=== PATIENT | female | born 1990 | race Caucasian/White ===

== ENCOUNTER 2019-01-04 12:00 | Emergency (ER) | payer OTHER ==
[2019-01-04 13:49] LABS: Absolute Lymphocytes (CBC) 2.4 K/uL (0.7-4.9); Absolute Monocytes 0.5 K/uL (0.1-1.3); Absolute Neutrophil 4.3 K/uL (1.8-8.0); Basophils % 0.7 % (0-1.3); Eosinophils % 1.6 % (0-4.4); Hematocrit 45.1 % (36.0-45.0); Lymphocytes % 32.3 % (15.3-44.8); MPV 8.5 fL (7.6-11.3); Monocytes % 6.6 % (3.3-12.3); RBC Red Blood Cell Count 5.65 M/uL (3.86-4.86)
[2019-01-04 13:59] LABS: Albumin 3.9 g/dL (3.4-5.0); Bilirubin Direct 0.2 mg/dL (0-0.2); Bilirubin Total 0.6 mg/dL (0.2-1.0); Potassium 3.9 mmol/L (3.5-5.1); Protein, Total 8.7 g/dL (6.4-8.2)
[2019-01-04] MEDS ORDERED: NA CHLORIDE 0.9% 1,000 ML ONE (14:15)
--- NOTE | 2019-01-04 15:10 | ER ---
Nurse's Notes [facility] Name: Odessa Stone Age: 28 yrs Sex: Female : 1990 Arrival Date: 01/04/2019 Time: 12:03 Bed 24 Private MD: Diagnosis: Diarrhea, unspecified;Dizziness and giddiness Presentation: 01/04 12:09 Presenting complaint: cough, congestion, fever, diarrhea, dizziness, and decreased hb appetite x 4 days. Sent from [facility]. Transition of care: patient was not received from another setting of care. Onset of symptoms was December 29, 2018. Risk Assessment: Do you want to hurt yourself or someone else? Patient reports no desire to harm self or others. Care prior to arrival: None. 12:09 Method Of Arrival: Ambulatory hb 12:09 Acuity: RAYMUNDO 3 hb 18:52 Initial Sepsis Screen: Does the patient meet any 2 criteria? No. Patient's initial tl3 sepsis screen is negative. Does the patient have a suspected source of infection? No. Patient's initial sepsis screen is negative. 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 - Social history:: Smoking status: Patient/guardian denies using tobacco. - Ebola Screening: : No symptoms or risks identified at this time. Screenin:49 Abuse screen: Denies threats or abuse. Nutritional screening: No deficits noted. tl3 Tuberculosis screening: No symptoms or risk factors identified. Fall Risk None identified. Assessment: 13:49 General: Appears uncomfortable, well groomed, well developed, well nourished, Behavior tl3 is calm, cooperative, appropriate for age. Pain: Complains of pain in headache Pain currently is 5 out of 10 on a pain scale. Neuro: Level of Consciousness is awake, alert, obeys commands, Oriented to person, place, time, situation, Appropriate for age. Neuro: Reports dizziness, since on/off for one week has had flu symptoms over the last week, fever t-max 102.0 was 4 days ago. Cardiovascular: Heart tones S1 S2 present Patient's skin is warm and dry. Respiratory: Airway is patent Respiratory effort is even, unlabored, Respiratory pattern is regular, symmetrical, Breath sounds are clear bilaterally. GI: Reports diarrhea. : No signs and/or symptoms were reported regarding the genitourinary system. EENT: No signs and/or symptoms were reported regarding the EENT system. Derm: No signs and/or symptoms reported regarding the dermatologic system. 14:38 Reassessment: Patient appears in no apparent distress at this time. No changes from tl3 previously documented assessment. Patient and/or family updated on plan of care and expected duration. Pain level reassessed. Patient is alert, oriented x 3, equal unlabored respirations, skin warm/dry/pink. IV fluids infusing, additional blankets provided, no needs at this time. Vital Signs: 12:11 BP 147 / 102; Pulse 97; Resp 16; Temp 98.3; Pulse Ox 99% on R/A; Pain 0/10; hb 13:31 BP 114 / 79 LA (auto/lg); Pulse 78; Resp 19; Pulse Ox 98% on R/A; Pain 2/10; jp3 13:49 BP 114 / 79; Pulse 84; Resp 16; Pulse Ox 98% on R/A; tl3 14:38 BP 116 / 93; Pulse 73; Resp 16; Pulse Ox 100% on R/A; tl3 13:31 patient reported a headache. jp3 ED Course: 12:03 Patient arrived in ED. rg4 12:10 Triage completed. hb 12:11 Arm band placed on left wrist. hb 13:06 Bed in low position. Call light in reach. Side rails up X 1. Warm blanket given. jp3 13:13 Gordon Agrawal MD is Attending Physician. kdr 13:30 Initial lab(s) drawn, by me, sent to lab. Inserted saline lock: 20 gauge in right 3 antecubital area, using aseptic technique. Blood collected. 13:35 Pulse ox on. NIBP on. jp3 13:43 Shayy Mcgill RN is Primary Nurse. tl3 13:43 Lipase Sent. jp3 13:43 Hepatic Function Sent. jp3 13:43 Creatinine for Radiology Sent. jp3 13:43 CBC with Diff Sent. jp3 13:43 Basic Metabolic Panel Sent. jp3 13:49 No provider procedures requiring assistance completed. tl3 15:25 IV discontinued, intact, bleeding controlled, No redness/swelling at site. Pressure tl3 dressing applied. Administered Medications: 14:11 Drug: NS 0.9% 1000 ml Route: IV; Rate: 1 bolus; Site: right antecubital; Delivery: tl3 Primary tubing; 15:20 Follow up: IV Status: Completed infusion; IV Intake: 1000ml tl3 Intake: 15:20 IV: 1000ml; Total: 1000ml. tl3 Outcome: 15:08 Discharge ordered by . kdr 15:25 Discharged to home tl3 15:25 Condition: stable 15:25 Discharge instructions given to patient, Instructed on discharge instructions, follow up and referral plans. Demonstrated understanding of instructions, follow-up care. 15:27 Patient left the ED. iw Signatures: Gordon Agrawal MD MD kdr Williams, Irene, RN RN Amee Mendoza RN RN hb Garcia, Rubi 4 Shayy Mcgill RN RN tl3 Mic Rodriguez jp3 Corrections: (The following items were deleted from the chart) 12:11 12:09 Presenting complaint: Diarrhea, malaise, cough, and dizziness x 1 week hb hb 12:11 12:09 Acuity: RAYMUNDO 4 hb hb
--- NOTE | 2019-01-04 15:10 | EDPHYS ---
Physician Documentation [facility] Name: Odessa Stone Age: 28 yrs Sex: Female : 1990 Arrival Date: 01/04/2019 Time: 12:03 Bed 24 Private MD: ED Physician Gordon Agrawal HPI: 01/04 14:04 This 28 yrs old Female presents to ER via Ambulatory with complaints of kdr Dizziness, Diarrhea. 14:04 The patient presents to the emergency department with nausea, diarrhea, that is kdr intermittent, abdominal pain, of the abdomen diffusely, described as crampy, intermittent, and does not radiate. Onset: The symptoms/episode began/occurred gradually, 1 week(s) ago. Possible causes: unknown. The symptoms are aggravated by food , The symptoms are alleviated by nothing. Associated signs and symptoms: Pertinent positives: abdominal pain, diarrhea, nausea. Severity of symptoms: At their worst the symptoms were mild in the emergency department the symptoms have improved markedly. The patient has not experienced similar symptoms in the past. The patient has not recently seen a physician. 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 - Social history:: Smoking status: Patient/guardian denies using tobacco. - Ebola Screening: : No symptoms or risks identified at this time. ROS: 14:04 Constitutional: Negative for fever, chills, and weight loss, Eyes: Negative for injury, kdr pain, redness, and discharge, ENT: Negative for injury, pain, and discharge, Neck: Negative for injury, pain, and swelling, Cardiovascular: Negative for chest pain, palpitations, and edema, Respiratory: Negative for shortness of breath, cough, wheezing, and pleuritic chest pain, Back: Negative for injury and pain, : Negative for injury, bleeding, discharge, and swelling, MS/Extremity: Negative for injury and deformity, Skin: Negative for injury, rash, and discoloration, Neuro: Negative for headache, weakness, numbness, tingling, and seizure activity. Psych: Negative for depression, anxiety, suicide ideation, homicidal ideation, and hallucinations, Allergy/Immunology: Negative for hives, rash, and allergies, Endocrine: Negative for neck swelling, polydipsia, polyuria, polyphagia, and marked weight changes, Hematologic/Lymphatic: Negative for swollen nodes, abnormal bleeding, and unusual bruising. 14:04 Abdomen/GI: Positive for abdominal pain, nausea and vomiting, diarrhea, abdominal cramps, Negative for abdominal distension, anorexia, dysphagia, hematemesis, black/tarry stool. Exam: 14:04 Constitutional: This is a well developed, well nourished patient who is awake, alert, kdr and in no acute distress. Head/Face: Normocephalic, atraumatic. Eyes: Pupils equal round and reactive to light, extra-ocular motions intact. Lids and lashes normal. Conjunctiva and sclera are non-icteric and not injected. Cornea within normal limits. Periorbital areas with no swelling, redness, or edema. Neck: Trachea midline, no thyromegaly or masses palpated, and no cervical lymphadenopathy. Supple, full range of motion without nuchal rigidity, or vertebral point tenderness. No Meningismus. Chest/axilla: Normal chest wall appearance and motion. Nontender with no deformity. No lesions are appreciated. Cardiovascular: Regular rate and rhythm with a normal S1 and S2. No gallops, murmurs, or rubs. Normal PMI, no JVD. No pulse deficits. Respiratory: Lungs have equal breath sounds bilaterally, clear to auscultation and percussion. No rales, rhonchi or wheezes noted. No increased work of breathing, no retractions or nasal flaring. Abdomen/GI: Soft, non-tender, with normal bowel sounds. No distension or tympany. No guarding or rebound. No evidence of tenderness throughout. Back: No spinal tenderness. No costovertebral tenderness. Full range of motion. Skin: Warm, dry with normal turgor. Normal color with no rashes, no lesions, and no evidence of cellulitis. MS/ Extremity: Pulses equal, no cyanosis. Neurovascular intact. Full, normal range of motion. Neuro: Awake and alert, GCS 15, oriented to person, place, time, and situation. Cranial nerves II-XII grossly intact. Motor strength 5/5 in all extremities. Sensory grossly intact. Cerebellar exam normal. Normal gait. Psych: Awake, alert, with orientation to person, place and time. Behavior, mood, and affect are within normal limits. Vital Signs: 12:11 BP 147 / 102; Pulse 97; Resp 16; Temp 98.3; Pulse Ox 99% on R/A; Pain 0/10; hb 13:31 BP 114 / 79 LA (auto/lg); Pulse 78; Resp 19; Pulse Ox 98% on R/A; Pain 2/10; jp3 13:49 BP 114 / 79; Pulse 84; Resp 16; Pulse Ox 98% on R/A; tl3 14:38 BP 116 / 93; Pulse 73; Resp 16; Pulse Ox 100% on R/A; tl3 13:31 patient reported a headache. jp3 MDM: 15:08 Patient medically screened. kdr 01/05 06:46 Data reviewed: vital signs, nurses notes, lab test result(s). Counseling: I had a kdr detailed discussion with the patient and/or guardian regarding: the historical points, exam findings, and any diagnostic results supporting the discharge/admit diagnosis, lab results, the need for outpatient follow up. 01/04 13:13 Order name: Basic Metabolic Panel; Complete Time: 15:07 kdr 01/04 13:13 Order name: CBC with Diff; Complete Time: 13:57 kdr 01/04 13:13 Order name: Creatinine for Radiology; Complete Time: 13:57 kdr 01/04 13:13 Order name: Hepatic Function; Complete Time: 15:07 kdr 01/04 13:13 Order name: Lipase; Complete Time: 15:07 kdr 01/04 13:13 Order name: IV Saline Lock; Complete Time: 13:42 kdr 01/04 13:13 Order name: Labs collected and sent; Complete Time: 13:42 kdr Administered Medications: 01/04 14:11 Drug: NS 0.9% 1000 ml Route: IV; Rate: 1 bolus; Site: right antecubital; Delivery: tl3 Primary tubing; 15:20 Follow up: IV Status: Completed infusion; IV Intake: 1000ml tl3 Disposition: 01/04/19 15:08 Discharged to Home. Impression: Diarrhea, unspecified, Dizziness and giddiness. - Condition is Stable. - Discharge Instructions: Diarrhea, Adult, Ulps-[id number], Dizziness, Iaxu-[id number]-Nuyz. - Prescriptions for Flagyl 500 mg Oral Tablet - take 1 tablet by ORAL route every 8 hours for 7 days; 21 tablet. Cipro 500 mg Oral Tablet - take 1 tablet by ORAL route every 12 hours for 7 days; 14 tablet. Lomotil 2.5- 0.025 mg Oral Tablet - take 1 tablet by ORAL route every 6 hours As needed; 20 tablet. promethazine 25 mg Oral Tablet - take 1 tablet by ORAL route every 6 hours As needed; 20 tablet. - Medication Reconciliation Form, Thank You Letter, Antibiotic Education, Work release form form. - Follow up: Private Physician; When: 2 - 3 days; Reason: If symptoms return, Further diagnostic work-up, Recheck today's complaints, Continuance of care, Re-evaluation by your physician. - Problem is an ongoing problem. - Symptoms have improved. Signatures: Dispatcher [employer] EDMS Gordon Agrawal MD MD kdr Nani Peña RN RN iw Amee Mendoza RN RN Shayy Mcgill RN RN tl3 Corrections: (The following items were deleted from the chart) 15:27 15:08 01/04/2019 15:08 Discharged to Home. Impression: Diarrhea, unspecified; Dizziness iw and giddiness. Condition is Stable. Forms are Medication Reconciliation Form, Thank You Letter, Antibiotic Education, Prescription Opioid Use. Follow up: Private Physician; When: 2 - 3 days; Reason: If symptoms return, Further diagnostic work-up, Recheck today's complaints, Continuance of care, Re-evaluation by your physician. Problem is an ongoing problem. Symptoms have improved. kdr
== END 2019-01-04 15:27 | disposition home or self-care (01) ==
LOC: ER 12:00
DX: R19.7 Diarrhea, unspecified (principal); F41.9 Anxiety disorder, unspecified; F32.9 Major depressive disorder, single episode, unspecified
CPT/HCPCS: 36415; 80048; 80076; 83690; 85025; 96360; 99284; J7030

== ENCOUNTER 2019-01-21 19:56 | Emergency (ER) | payer OTHER ==
[2019-01-21 20:45] LABS: Absolute Lymphocytes (CBC) 2.7 K/uL (0.7-4.9); Absolute Monocytes 0.6 K/uL (0.1-1.3); Absolute Neutrophil 6.8 K/uL (1.8-8.0); Basophils % 1.1 % (0-1.3); Eosinophils % 1.1 % (0-4.4); Hematocrit 41.6 % (36.0-45.0); Lymphocytes % 25.7 % (15.3-44.8); MPV 8.4 fL (7.6-11.3); Monocytes % 5.7 % (3.3-12.3); RBC Red Blood Cell Count 5.17 M/uL (3.86-4.86)
[2019-01-21 20:51] LABS: Protime INR 1.02
[2019-01-21 21:00] LABS: ALT/SGPT 48 U/L (12-78); AST/SGOT 27 U/L (15-37); Albumin 3.7 g/dL (3.4-5.0); Alkaline Phosphatase 128 U/L (45-117); BUN Blood Urea Nitrogen 9 mg/dL (7-18); Bicarbonate 23 mmol/L (21-32); Bilirubin Direct 0.2 mg/dL (0-0.2); Bilirubin Total 0.6 mg/dL (0.2-1.0); Glucose Level 83 mg/dL (74-106); Potassium 3.7 mmol/L (3.5-5.1); Protein, Total 8.4 g/dL (6.4-8.2); Sodium Level 141 mmol/L (136-145)
[2019-01-21] MEDS ORDERED: NA CHLORIDE 0.9% 1,000 ML ONE (22:38)
[2019-01-22] MEDS ORDERED: NA CHLORIDE 0.9% 1,000 ML ONE (01:57)
[2019-01-22 02:09] LABS: Urine Blood NEGATIVE (NEG); Urine Glucose NEGATIVE (NEG); Urine Protein 1+ (NEG); Urine Specific Gravity >1.030 (1.005-1.030)
[2019-01-22 02:15] LABS: Barbiturates NEGATIVE (NEGATIVE); Benzodiazepines NEGATIVE (NEGATIVE); Cocaine NEGATIVE (NEGATIVE); METHAMPHETAM NEGATIVE (NEGATIVE); Methadone NEGATIVE (NEGATIVE); Opiates NEGATIVE (NEGATIVE); Phencyclidine NEGATIVE (NEGATIVE); THC Cannibis NEGATIVE (NEGATIVE)
--- NOTE | 2019-01-22 08:48 | EKG ---
Test Date: 2019-01-21 Test Time: 20:18:37 Utility Arborist: ALENA MEASUREMENT RESULTS: Intervals: Rate: 135 UT: 134 QRSD: 78 QT: 300 QTc: 450 [place]: P: 37 UT: 134 QRS: 9 T: 38 INTERPRETIVE STATEMENTS: Sinus tachycardia Possible Left atrial enlargement Cannot rule out Inferior infarct, age undetermined Abnormal ECG No previous ECG available for comparison Electronically Signed On 01-22-19 08:47:34 CDT by Norberto Youngblood
--- NOTE | 2019-01-22 13:00 | ER ---
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 with patient. Sitter present: Yes. Administered Medications: 01/21 20:48 Not Given (canceled, poisin control stated she did not need): Charcoal Suspension 50 ak1 grams PO once 22:41 Drug: NS 0.9% 1000 ml Route: IV; Rate: 1 bolus; Site: left antecubital; ak1 23:55 Follow up: IV Status: Completed infusion; IV Intake: 1000ml ak1 01/22 01:49 Drug: NS 0.9% 1000 ml Route: IV; Rate: 1 bolus; Site: left antecubital; ak1 05:02 Follow up: IV Status: Completed infusion; IV Intake: 1000ml ak1 Intake: 01/21 23:55 IV: 1000ml; Total: 1000ml. ak1 01/22 05:02 IV: 1000ml; Total: 2000ml. ak1 Outcome: 12:59 Discharge ordered by . keshav 13:08 Patient left the ED. iw Signatures: Blayne Lala, RN RN sg César Lee MD MD cha Salyer, Edna es Ballard, Brenda RN RN bb Nani Peña RN RN Lauren Sewell ms, Chelsie, RN RN ak1 Yas Patel 3 Corey Lewis RN RN bp Oli Lucia MD MD tw4 Bowen Dee RN RN [id number] Corrections: (The following items were deleted from the chart) 01/21 20:37 20:35 BP 146 / 91; Pulse 142bpm; Resp 16bpm; Spontaneous; Pulse Ox 100% RA; Temp 98.4F bb Oral; 99.79 kg Reported; Height 5 ft. 6 in. Reported; BMI: 35.5; bb 21:59 20:15 Safety Checks: Personal items have been removed. The door is open or patient has ak1 been placed in a hallway bed/chair. A family member and/or friend is present and encouraged to stay. Sitter present at this time. ak1
--- NOTE | 2019-01-22 13:01 | EDPHYS ---
Physician Documentation [facility] Name: Odessa Stone Age: 28 yrs Sex: Female : 1990 Arrival Date: 01/21/2019 Time: 19:58 Bed 2 Private MD: ED Physician César Lee HPI: 01/22 05:05 This 28 yrs old Female presents to ER via Ambulatory with complaints of tw4 Overdose. 05:05 The patient presents to the emergency department after a known overdose. Context: tw4 Method: the patient has a confirmed or suspected ingestion, Time:. Associated signs and symptoms: The patient has no apparent associated signs or symptoms. Severity of symptoms: At their worst the symptoms were moderate in the emergency department the symptoms are unchanged. The patient has not experienced similar symptoms in the past. [employer]: 02:39 negative UPT in ER ak1 Historical: - Allergies: 01/21 20:35 No Known Allergies; bb - Home Meds: 20:35 Wellbutrin Oral [Active]; Lamictal Oral [Active]; Clonazepam Oral [Active]; Latuda oral bb oral [Active]; - PMHx: 20:35 Anxiety; Depression; bb - PSHx: 20:35 gastric sleeve; bb - Immunization history:: Adult Immunizations up to date. - Ebola Screening: : No symptoms or risks identified at this time. - Social history:: Smoking status: unknown. ROS: 01/22 05:05 Constitutional: Negative for fever, chills, and weight loss, Eyes: Negative for injury, tw4 pain, redness, and discharge, ENT: Negative for injury, pain, and discharge, Cardiovascular: Negative for chest pain, palpitations, and edema, Respiratory: Negative for shortness of breath, cough, wheezing, and pleuritic chest pain, Abdomen/GI: Negative for abdominal pain, nausea, vomiting, diarrhea, and constipation, Back: Negative for injury and pain, MS/Extremity: Negative for injury and deformity, Skin: Negative for injury, rash, and discoloration, Neuro: Negative for headache, weakness, numbness, tingling, and seizure. Psych: Positive for depression, suicide gesture, suicidal ideation. Exam: 05:05 Constitutional: This is a well developed, well nourished patient who is awake, alert, tw4 and in no acute distress. Head/Face: Normocephalic, atraumatic. Chest/axilla: Normal chest wall appearance and motion. Nontender with no deformity. No lesions are appreciated. Cardiovascular: Regular rate and rhythm with a normal S1 and S2. No gallops, murmurs, or rubs. Normal PMI, no JVD. No pulse deficits. Respiratory: Lungs have equal breath sounds bilaterally, clear to auscultation and percussion. No rales, rhonchi or wheezes noted. No increased work of breathing, no retractions or nasal flaring. Abdomen/GI: Soft, non-tender, with normal bowel sounds. No distension or tympany. No guarding or rebound. No evidence of tenderness throughout. Back: No spinal tenderness. No costovertebral tenderness. Full range of motion. MS/ Extremity: Pulses equal, no cyanosis. Neurovascular intact. Full, normal range of motion. Neuro: Awake and alert, GCS 15, oriented to person, place, time, and situation. Cranial nerves II-XII grossly intact. Motor strength 5/5 in all extremities. Sensory grossly intact. Cerebellar exam normal. Normal gait. 05:05 Psych: Behavior/mood is suicidal, depressed. 12:58 Psych: NOT SUICIDAL, will follow up, mom agrees with the plan. keshav Vital Signs: 01/21 20:15 BP 146 / 91; Pulse 142; Resp 16 S; Temp 98.4(O); Pulse Ox 100% on R/A; Weight 99.79 kg bb (R); Height 5 ft. 6 in. (167.64 cm) (R); 21:54 BP 147 / 91; Pulse 116; Resp 14; Pulse Ox 97% on R/A; ak1 23:36 BP 153 / 98; Pulse 109; Resp 24; Pulse Ox 98% on R/A; ak1 01/22 01:00 BP 130 / 78; Pulse 88; Resp 20; Temp 98.4(TE); Pulse Ox 96% on R/A; Pain 0/10; ak1 01:50 BP 119 / 76; Pulse 91; Resp 20; Temp 98.6(TE); Pulse Ox 98% on R/A; Pain 0/10; ak1 04:29 BP 117 / 91; Pulse 74; Resp 14; Temp 98.4(TE); Pulse Ox 98% on R/A; Pain 0/10; ak1 07:00 BP 122 / 84; Pulse 74; Resp 19; Pulse Ox 97% ; bp 10:45 BP 121 / 73; Pulse 93; Resp 19; Pulse Ox 98% on R/A; Pain 0/10; dh3 12:40 BP 151 / 77; Pulse 78; Resp 14; Pulse Ox 99% ; bp 01/21 20:15 Body Mass Index 35.51 (99.79 kg, 167.64 cm) bb MDM: 01/21 20:09 Patient medically screened. tw01/22 05:05 Differential diagnosis: Ingestion/exposure to anti depressants polypharmacy. Data tw4 reviewed: vital signs, nurses notes. Data interpreted: media monitor: rhythm is normal sinus rhythm, Pulse oximetry: Interpretation: normal. Counseling: I had a detailed discussion with the patient and/or guardian regarding: the historical points, exam findings, and any diagnostic results supporting the discharge/admit diagnosis, radiology results. Special discussion: I discussed with the patient/guardian in detail that at this point there is no indication for admission to the hospital. It is understood, however, that if the symptoms persist or worsen the patient needs to return immediately for re-evaluation. 01/21 20:16 Order name: Acetaminophen; Complete Time: 12:57 01/21 20:16 Order name: Basic Metabolic Panel; Complete Time: 01:43 01/21 20:16 Order name: CBC with Diff; Complete Time: 12:57 01/21 20:16 Order name: ETOH Level; Complete Time: 12:57 01/21 20:16 Order name: Hepatic Function; Complete Time: 12:57 01/21 20:16 Order name: PT-INR; Complete Time: 12:57 01/21 20:16 Order name: Ptt, Activated; Complete Time: 12:57 01/21 20:16 Order name: Salicylate; Complete Time: 12:57 01/21 20:16 Order name: Urine Drug Screen; Complete Time: 12:57 01/22 01:17 Order name: Tylenol Level; Complete Time: 12:57 01/22 01:45 Order name: Urine Dipstick--Ancillary (enter results) mw2 01/22 01:45 Order name: Urine --Ancillary (enter results) mw2 01/22 01:56 Order name: Urine Dipstick-Ancillary; Complete Time: 12:57 EDMS 01/22 01:56 Order name: Urine --Ancillary; Complete Time: 12:57 EDMS 01/21 20:16 Order name: Urine Test (obtain specimen); Complete Time: 01:49 tw4 01/21 20:16 Order name: EKG; Complete Time: 20:17 tw4 01/21 20:16 Order name: EKG - Nurse/Tech; Complete Time: 20:45 tw4 01/21 20:16 Order name: IV Saline Lock; Complete Time: 20:45 tw4 01/21 20:16 Order name: Labs collected and sent; Complete Time: 20:45 tw01/21 20:16 Order name: Urine Dipstick-Ancillary (obtain specimen); Complete Time: 01:49 tw4 01/22 06:14 Order name: Diet Regular; Complete Time: 06:14 rr5 01/22 11:40 Order name: Diet Finger Food; Complete Time: 11:40 bd Administered Medications: 01/21 20:48 Not Given (canceled, poisin control stated she did not need): Charcoal Suspension 50 ak1 grams PO once 22:41 Drug: NS 0.9% 1000 ml Route: IV; Rate: 1 bolus; Site: left antecubital; ak1 23:55 Follow up: IV Status: Completed infusion; IV Intake: 1000ml ak1 01/22 01:49 Drug: NS 0.9% 1000 ml Route: IV; Rate: 1 bolus; Site: left antecubital; ak1 05:02 Follow up: IV Status: Completed infusion; IV Intake: 1000ml ak1 Disposition: 01/22/19 12:59 Discharged to Home. Impression: Adjustment disorder with depressed mood, Suicidal ideations, Suicide attempt. - Condition is Stable. - Discharge Instructions: Adjustment Disorder, Adult, Bipolar Disorder, Suicidal Feelings: How to Help Yourself, Helping Someone Who is Suicidal, Stress and Stress Management. - Medication Reconciliation Form, Thank You Letter, Antibiotic Education, Prescription Opioid Use form. - Follow up: Private Physician; When: 2 - 3 days; Reason: Recheck today's complaints, Continuance of care, Re-evaluation by your physician. - Problem is new. - Symptoms have improved. Signatures: Dispatcher [employer] EDCésar Santiago MD MD cha Ballard, Brenda, RN RN Nani Davison RN RN Chelsie Morales RN RN ak1 Oli Lucia MD MD tw4 Corrections: (The following items were deleted from the chart) 13:08 12:59 01/22/2019 12:59 Discharged to Home. Impression: Adjustment disorder with iw depressed mood; Suicidal ideations; Suicide attempt. Condition is Stable. Forms are Medication Reconciliation Form, Thank You Letter, Antibiotic Education, Prescription Opioid Use. Follow up: Private Physician; When: 2 - 3 days; Reason: Recheck today's complaints, Continuance of care, Re-evaluation by your physician. Problem is new. Symptoms have improved. keshav
== END 2019-01-22 13:08 | disposition home or self-care (01) ==
LOC: ER 19:56
DX: F43.21 Adjustment disorder with depressed mood (principal); T14.91XA Suicide attempt, initial encounter; F41.8 Other specified anxiety disorders
CPT/HCPCS: 36415; 80048; 80076; 80307; 80320; 80329; 81003; 81025; 85025; 85610; 85730; 93005; 96360; 96361; 99285; J7030